=== PATIENT | male | born 1960 | race African-American/Black ===

== ENCOUNTER 2017-06-03 18:08 | Inpatient (IN) | payer MEDICAID, OTHER ==
[~2017-06-03] VITALS: Ht 198.1 cm; Wt 67.1 kg
[~2017-06-03 18:08] MED LIST: CEPH500C2 PO; CIPR-263; IOHEXOL-350 100 ML BOTTLE ONE; OXYB5TAB11; SODIUM CHLORIDE 0.9% 10ML VIAL ONE
[2017-06-03] MEDS ORDERED: LIDOCAINE HCL 1%/EPI 1:200,000 30 ML VIAL MC ONE (19:30)
[2017-06-03] MEDS ORDERED: LIDOCAINE/EPINEPHR/TETRACAINE 3ML TP ONE (19:30)
[2017-06-03] MEDS ORDERED: SODIUM CHLORIDE 0.9% 1,000 ML IV ONE (19:52)
[2017-06-03] MEDS ORDERED: ACETAMINOPHEN 325MG TABLET PO STA (19:52)
[2017-06-03 20:42] LABS: D-DIMER 0.83 mg/L FEU (<0.50); INR 1.1
[2017-06-03 20:44] LABS: HEMATOCRIT. 31.8 % (42.0-52.0); HEMOGLOBIN. 11.1 g/dL (14.0-18.0); MEAN CORPUSCULAR HEMOGLOBIN 34.3 pg (28.0-32.0); MEAN CORPUSCULAR VOLUME 98.6 fL (80.0-94.0); MEAN PLATELET VOLUME 7.7 fl (7.4-10.4); PLATELET 198 x1000/uL (130-400); RED BLOOD CELL COUNT 3.22 mill/uL (4.7-6.1); RED CELL DISTRIBUTION WIDTH 14.1 % (11.6-14.6)
[2017-06-03 20:48] LABS: CARBON DIOXIDE 24 mEq/L (21-32); CHLORIDE 88 mEq/L (98-107); TROPONIN I < 0.02 ng/mL (0.00-0.04)
[2017-06-03] MEDS ORDERED: POTASSIUM CHLORIDE 20MEQ TABLET SR PO NR (21:30)
[2017-06-03] MEDS ORDERED: FUROSEMIDE 40MG/4ML VIAL IVP NR (21:30)
[2017-06-03] MEDS ORDERED: ACETAMINOPHEN 325MG TABLET PO PRN (22:30)
[2017-06-03] MEDS ORDERED: DIPHENHYDRAMINE 50MG/ML VIAL IV PRN (22:30)
[2017-06-03] MEDS ORDERED: POTASSIUM CHLORIDE 20MEQ TABLET SR PO SCH (22:30)
[2017-06-03] MEDS ORDERED: MAGNESIUM/ALUMINUM HYDROXIDE/SIMETHICONE 30ML UDC PO PRN (22:30)
[2017-06-03] MEDS ORDERED: GUAIFENESIN 200MG/10ML SUGAR FREE UDC PO PRN (22:30)
[2017-06-03] MEDS ORDERED: ONDANSETRON HCL 4MG/2ML VIAL IV PRN (22:30)
[2017-06-03] MEDS ORDERED: IPRATROPIUM/ALBUTEROL 0.5-3(2.5)MG/3ML NEB INH PRN (22:30)
[2017-06-03] MEDS ORDERED: CLONIDINE 0.1MG TABLET PO PRN (22:30)
[2017-06-03] MEDS ORDERED: MAGNESIUM HYDROXIDE 400MG/5ML 30ML UDC PO PRN (22:30)
[2017-06-03 23:03] LABS: PLATELET ESTIMATE NORMAL
[2017-06-03] MEDS ORDERED: ZOLPIDEM TARTRATE 5MG TABLET PO PRN (23:30)
[2017-06-04 01:08] LABS: CLARITY URINE CLOUDY (CLEAR); COLOR URINE YELLOW (YELLOW); GLUCOSE URINE NEGATIVE (NEGATIVE); KETONES URINE 1+ (NEGATIVE); LEUKOCYTE ESTERASE URINE 3+ (NEGATIVE); NITRITE URINE POSITIVE (NEGATIVE); OCCULT BLOOD URINE TRACE (NEGATIVE); PH URINE 5.5 (4.5-8.0); PROTEIN URINE NEGATIVE (NEGATIVE)
[2017-06-04] MEDS ORDERED: LEVOFLOXACIN 500MG PREMIX 100 ML IV SCH (02:30)
[2017-06-04 08:00] VITALS: BP 93/57
[2017-06-04] MEDS ORDERED: THIAMINE HCL 100 MG in SODIUM CHLORIDE 0.9% 49 ML IV SCH (08:00)
[2017-06-04] MEDS ORDERED: MAGNESIUM 2 G PREMIX 50 ML IV SCH (08:00)
[2017-06-04 10:12] LABS: CARBON DIOXIDE 28 mEq/L (21-32); CHLORIDE 90 mEq/L (98-107)
[2017-06-04] MEDS: SODIUM CHLORIDE 0.9% INJ 3ML FLUSH IVF SCH ×3 (10:39→21:52)
[2017-06-04 12:27] VITALS: BP 109/64
[2017-06-04 13:32] VITALS: BP 93/57
[2017-06-04] MEDS: POTASSIUM CHLORIDE 20MEQ TABLET SR PO SCH ×3 (13:52→21:52)
[2017-06-04 15:13] VITALS: BP_SYST 129; BP_SYST 76; BP_SYST 92; BP_SYST 97; BP_DIAS 43; BP_DIAS 51; BP_DIAS 62; BP_DIAS 67
[2017-06-04] MEDS: LEVOFLOXACIN 500MG PREMIX 100 ML IV SCH (15:22)
[2017-06-04 20:00] VITALS: BP 109/58
[2017-06-04] MEDS ORDERED: MAGNESIUM 4 G PREMIX 100 ML IV NR (20:00)
[2017-06-05 00:33] VITALS: BP 105/59
[2017-06-05 04:00] VITALS: BP 101/52
[2017-06-05 07:28] LABS: CARBON DIOXIDE 33 mEq/L (21-32); CHLORIDE 92 mEq/L (98-107); PHOSPHORUS 1.6 mg/dL (2.5-4.9)
[2017-06-05 08:00] VITALS: BP 99/59
[2017-06-05] MEDS: POTASSIUM CHLORIDE 20MEQ TABLET SR PO SCH (09:48)
[2017-06-05] MEDS: THIAMINE HCL 100MG TABLET PO SCH (09:49)
[2017-06-05] MEDS: LEVOFLOXACIN 500MG PREMIX 100 ML IV SCH (09:50)
[2017-06-05 12:00] VITALS: BP 97/53
[2017-06-05] MEDS: SODIUM CHLORIDE 0.9% INJ 3ML FLUSH IVF SCH ×3 (14:00→22:59)
[2017-06-05] MEDS ORDERED: POTASSIUM PHOS,M-BASIC-D-BASIC 20 MMOL in DEXT 5% WATER 243.3333 ML IV SCH (15:00)
[2017-06-05 16:00] VITALS: BP 95/58
[2017-06-05 20:00] VITALS: BP 96/55
[2017-06-06] VITALS (7 sets, daily range): BP systolic 95–112; BP diastolic 54–68
[2017-06-06] MEDS: SODIUM CHLORIDE 0.9% INJ 3ML FLUSH IVF SCH ×3 (05:52→22:00)
[2017-06-06 06:33] LABS: HEMATOCRIT. 29.2 % (42.0-52.0); MEAN CORPUSCULAR HEMOGLOBIN 33.6 pg (28.0-32.0); MEAN CORPUSCULAR VOLUME 97.9 fL (80.0-94.0); MEAN PLATELET VOLUME 7.5 fl (7.4-10.4); PLATELET 298 x1000/uL (130-400); RED BLOOD CELL COUNT 2.99 mill/uL (4.7-6.1); RED CELL DISTRIBUTION WIDTH 14.3 % (11.6-14.6)
[2017-06-06 07:59] LABS: CARBON DIOXIDE 29 mEq/L (21-32); CHLORIDE 98 mEq/L (98-107); PHOSPHORUS 3.2 mg/dL (2.5-4.9)
[2017-06-06] MEDS: THIAMINE HCL 100MG TABLET PO SCH (09:24)
[2017-06-06] MEDS: POTASSIUM CHLORIDE 20MEQ TABLET SR PO SCH (09:24)
[2017-06-06] MEDS: LEVOFLOXACIN 500MG PREMIX 100 ML IV SCH (09:24)
[2017-06-06 14:13] LABS: PLATELET ESTIMATE NORMAL
[2017-06-06] MEDS ORDERED: MAGNESIUM 2 G PREMIX 50 ML IV NR (16:00)
[2017-06-07] VITALS (7 sets, daily range): BP systolic 95–115; BP diastolic 57–71
[2017-06-07] MEDS: SODIUM CHLORIDE 0.9% INJ 3ML FLUSH IVF SCH ×2 (06:00→16:49)
[2017-06-07] MEDS: POTASSIUM CHLORIDE 20MEQ TABLET SR PO SCH (08:53)
[2017-06-07] MEDS: THIAMINE HCL 100MG TABLET PO SCH (08:53)
[2017-06-07] MEDS: LEVOFLOXACIN 500MG PREMIX 100 ML IV SCH (08:59)
== END 2017-06-07 21:30 | disposition home health service (06) | DRG 52 ==
LOC: ER 18:45 → 6WST 21:43 → EDBEDREQ 21:52 → ENRESERV 06-04 04:30
PROVIDERS: ADMIT Internal Medicine; ATTEND Internal Medicine
DX: G93.41 Metabolic encephalopathy (principal); E43 Unspecified severe protein-calorie malnutrition; F10.20 Alcohol dependence, uncomplicated; E87.5 Hyperkalemia; L89.90 Pressure ulcer of unspecified site, unspecified stage; E87.1 Hypo-osmolality and hyponatremia; N39.0 Urinary tract infection, site not specified; J44.9 Chronic obstructive pulmonary disease, unspecified; Y90.9 Presence of alcohol in blood, level not specified; K76.9 Liver disease, unspecified; M25.572 Pain in left ankle and joints of left foot; Z79.2 Long term (current) use of antibiotics; Z72.0 Tobacco use; Z79.899 Other long term (current) drug therapy
CPT/HCPCS: 36415; 70450; 71010; 71275; 80048; 80053; 81001; 83735; 83880; 84100; 84443; 84484; 85025; 85379; 85610; 87077; 87086; 87186; 93005; 93970; 96374; 97110; 97163; 97530; 99285; A4216; J1940; J1956; J3411; J3475; J3490; J7030; J7050; J7060; Q9967

== ENCOUNTER 2017-06-09 13:46 | Emergency (ER) | payer MEDICAID ==
[~2017-06-09] VITALS: Ht 182.9 cm; Wt 68.0 kg
[~2017-06-09 13:46] MED LIST changes: -CEPH500C2 PO; -CIPR-263; -IOHEXOL-350 100 ML BOTTLE ONE; -SODIUM CHLORIDE 0.9% 10ML VIAL ONE
[2017-06-09 14:48] LABS: BASOPHILS % 1.3 % (0.0-2.0); EOSINOPHILS % 1.1 % (0.0-5.0); HEMATOCRIT. 30.1 % (42.0-52.0); HEMOGLOBIN. 10.4 g/dL (14.0-18.0); LYMPHOCYTES % 19.4 % (20.0-50.0); MEAN CORPUSCULAR HEMOGLOBIN 33.6 pg (28.0-32.0); MEAN CORPUSCULAR VOLUME 97.2 fL (80.0-94.0); MEAN PLATELET VOLUME 6.9 fl (7.4-10.4); MONOCYTES % 13.2 % (2.0-8.0); PLATELET 356 x1000/uL (130-400); RED BLOOD CELL COUNT 3.09 mill/uL (4.7-6.1); RED CELL DISTRIBUTION WIDTH 14.5 % (11.6-14.6)
[2017-06-09 14:56] LABS: PROTHROMBIN TIME 10.8 sec (9.4-11.6)
[2017-06-09 15:06] LABS: CARBON DIOXIDE 28 mEq/L (21-32); CHLORIDE 98 mEq/L (98-107)
[2017-06-09 16:02] LABS: CLARITY URINE CLEAR (CLEAR); COLOR URINE YELLOW (YELLOW); GLUCOSE URINE NEGATIVE (NEGATIVE); KETONES URINE NEGATIVE (NEGATIVE); LEUKOCYTE ESTERASE URINE NEGATIVE (NEGATIVE); NITRITE URINE NEGATIVE (NEGATIVE); OCCULT BLOOD URINE NEGATIVE (NEGATIVE); PH URINE 5.5 (4.5-8.0); PROTEIN URINE NEGATIVE (NEGATIVE); SPECIFIC GRAVITY URINE 1.011 (1.005-1.030)
[2017-06-09 18:55] VITALS: BP 111/73
== END 2017-06-09 19:05 | disposition home or self-care (01) ==
LOC: ER 18:17 → CANBEDREQ 19:28
DX: I95.9 Hypotension, unspecified (principal); R42 Dizziness and giddiness; I10 Essential (primary) hypertension; L97.529 Non-pressure chronic ulcer of other part of left foot with unspecified severity; E11.621 Type 2 diabetes mellitus with foot ulcer
CPT/HCPCS: 36415; 71010; 80053; 81003; 83605; 85025; 85610; 87040; 87086; 93005; 99285; Z7610

== ENCOUNTER 2021-02-02 11:20 | Inpatient (IN) | payer MEDICAID, OTHER ==
[~2021-02-02] VITALS: Ht 195.6 cm; Wt 86.4 kg
[~2021-02-02 11:20] MED LIST changes: -OXYB5TAB11; +OXYB5TAB17
[2021-02-02 12:11] LABS: BASOPHILS % 1.1 % (0.0-2.0); EOSINOPHILS % 1.9 % (0.0-5.0); HEMATOCRIT. 34.3 % (42.0-52.0); HEMOGLOBIN. 11.5 g/dL (14.0-18.0); LYMPHOCYTES % 28.2 % (20.0-50.0); MEAN CORPUSCULAR HEMOGLOBIN 29.6 pg (28.0-32.0); MEAN CORPUSCULAR VOLUME 88.3 fL (80.0-94.0); MEAN PLATELET VOLUME 7.4 fl (7.4-10.4); MONOCYTES % 13.5 % (2.0-8.0); NEUTROPHILS % 55.3 % (40.0-76.0); PLATELET 242 x1000/uL (130-400); RED BLOOD CELL COUNT 3.88 mill/uL (4.7-6.1); RED CELL DISTRIBUTION WIDTH 16.5 % (11.6-14.6)
[2021-02-02 12:19] LABS: CHLORIDE 104 mEq/L (98-107)
[2021-02-02 12:21] LABS: INR 1.1; PROTHROMBIN TIME 11.4 sec (9.6-11.0)
[2021-02-02 12:23] LABS: ETHANOL BLOOD < 10 mg/dL
[2021-02-02 12:27] LABS: C REACTIVE PROTEIN QUANT 4.7 mg/L (0.0-3.0); CREATINE KINASE 128 IU/L (39-308)
[2021-02-02 12:35] LABS: CLARITY URINE CLEAR (CLEAR); COLOR URINE YELLOW (YELLOW); KETONES URINE NEGATIVE (NEGATIVE); LEUKOCYTE ESTERASE URINE NEGATIVE (NEGATIVE); NITRITE URINE NEGATIVE (NEGATIVE); OCCULT BLOOD URINE NEGATIVE (NEGATIVE); PROTEIN URINE NEGATIVE (NEGATIVE); SPECIFIC GRAVITY URINE 1.013 (1.005-1.030); UROBILINOGEN URINE 0.2 E.U./dL (0.2-1.0)
[2021-02-02 12:48] LABS: *BARBITURATES SCREEN URINE NEGATIVE (NEGATIVE); *BENZODIAZEPINES SCREEN URINE NEGATIVE (NEGATIVE); *COCAINE SCREEN URINE NEGATIVE (NEGATIVE)
[2021-02-02 12:49] LABS: *AMPHETAMINES SCREEN URINE NEGATIVE (NEGATIVE); CANNABINOID URINE SCREEN NEGATIVE (NEGATIVE); METHADONE URINE SCREEN NEGATIVE (NEGATIVE); OPIATES URINE SCREEN NEGATIVE (NEGATIVE); PHENCYCLIDINE URINE SCREEN NEGATIVE (NEGATIVE)
[2021-02-02] MEDS ORDERED: PIPERACILLIN/TAZOBACTAM 3.375GM/50ML PREMIX IV ONE (13:00)
[2021-02-02] MEDS ORDERED: PIPERACILLIN/TAZ 3.375G PREMIX 50 ML IV SCH ×2 (13:00→23:00)
[2021-02-02] MEDS ORDERED: VANCOMYCIN 1 G PREMIX 200 ML IV SCH (13:00)
[2021-02-02 22:35] VITALS: BP 121/72
[2021-02-02] MEDS ORDERED: ONDANSETRON HCL 4MG/2ML INJ IV PRN (23:00)
[2021-02-02] MEDS ORDERED: NA PHOS,M-B/NA PHOS,DI-BA ENEMA 118ML PR PRN (23:00)
[2021-02-02] MEDS ORDERED: MORPHINE SULFATE 2 MG/ML CPJ (NOT FOR IM USE) IV PRN (23:00)
[2021-02-02] MEDS ORDERED: DIPHENHYDRAMINE 50MG/ML VIAL IV PRN (23:00)
[2021-02-02] MEDS ORDERED: GUAIFENESIN 200MG/10ML SUGAR FREE UDC PO PRN (23:00)
[2021-02-02] MEDS ORDERED: IPRATROPIUM/ALBUTEROL 0.5-3(2.5)MG/3ML NEB NEB PRN (23:00)
[2021-02-02] MEDS ORDERED: ACETAMINOPHEN 325MG TABLET PO PRN (23:00)
[2021-02-02] MEDS ORDERED: DOCUSATE SODIUM 100MG CAPSULE PO PRN (23:00)
[2021-02-02] MEDS ORDERED: MAGNESIUM/ALUMINUM HYDROXIDE/SIMETHICONE 30ML UDC PO PRN (23:00)
[2021-02-02] MEDS ORDERED: HYDROCODONE/ACETAMINOPHEN 5/325MG TABLET PO PRN (23:00)
[2021-02-02] MEDS ORDERED: LORAZEPAM 2MG/ML CPJ IV PRN (23:00)
[2021-02-02] MEDS ORDERED: CLONIDINE 0.1MG TABLET PO PRN (23:00)
[2021-02-02] MEDS ORDERED: DEXTROSE 50% WATER 50ML SYRINGE IV PRN (23:30)
[2021-02-03] VITALS: BP 115/68
[2021-02-03 00:02] LABS: CHLORIDE 105 mEq/L (98-107)
[2021-02-03] MEDS ORDERED: FURO-152 PO (01:10)
[2021-02-03] MEDS ORDERED: ACET-2708 MT (01:10)
[2021-02-03] MEDS: PIPERACILLIN/TAZOBACTAM 3.375 G in DEXT 5% WATER 100 ML IV SCH ×3 (01:49→18:05)
[2021-02-03] MEDS: VANCOMYCIN 1 G PREMIX 200 ML IV SCH ×3 (03:24→21:15)
[2021-02-03 04:46] VITALS: BP 99/57
[2021-02-03 06:25] LABS: CHLORIDE 106 mEq/L (98-107)
[2021-02-03 06:34] LABS: HDL CHOLESTEROL 39 mg/dL (40-59)
[2021-02-03 06:35] LABS: T4 FREE 1.06 ng/dL (0.76-1.46)
[2021-02-03] MEDS: BLOOD SUGAR DIAGNOSTIC STRIP TEST SCH ×4 (06:37→21:10)
[2021-02-03 06:46] LABS: LDL CHOLESTEROL 62 mg/dL (5-100)
[2021-02-03 07:25] LABS: BASOPHILS % 1.1 % (0.0-2.0); HEMATOCRIT. 36.4 % (42.0-52.0); HEMOGLOBIN. 12.2 g/dL (14.0-18.0); LYMPHOCYTES % 26.4 % (20.0-50.0); MEAN CORPUSCULAR HEMOGLOBIN 29.6 pg (28.0-32.0); MEAN CORPUSCULAR VOLUME 88.3 fL (80.0-94.0); MEAN PLATELET VOLUME 7.9 fl (7.4-10.4); MONOCYTES % 10.2 % (2.0-8.0); NEUTROPHILS % 59.3 % (40.0-76.0); PLATELET 244 x1000/uL (130-400); RED BLOOD CELL COUNT 4.12 mill/uL (4.7-6.1); RED CELL DISTRIBUTION WIDTH 16.5 % (11.6-14.6)
[2021-02-03] MEDS: INSULIN LISPRO 100 UNITS/ML SUBCUT SCH ×4 (07:50→21:00)
[2021-02-03 07:53] VITALS: BP 105/60
[2021-02-03] MEDS: FUROSEMIDE 40MG/4ML VIAL IV SCH (09:22)
[2021-02-03] MEDS: ENOXAPARIN 40MG/0.4ML SYR SUBCUT SCH (09:23)
[2021-02-03] MEDS: ASPIRIN 81MG EC TABLET PO SCH (09:23)
[2021-02-03 11:39] VITALS: BP 92/53
[2021-02-03 16:47] VITALS: BP 101/57
[2021-02-03 20:26] VITALS: BP 91/52
[2021-02-04 00:29] VITALS: BP 106/63
[2021-02-04] MEDS: PIPERACILLIN/TAZOBACTAM 3.375 G in DEXT 5% WATER 100 ML IV SCH ×2 (02:56→09:34)
[2021-02-04 04:00] VITALS: BP 99/58
[2021-02-04] MEDS: VANCOMYCIN 1 G PREMIX 200 ML IV SCH (06:18)
[2021-02-04] MEDS: BLOOD SUGAR DIAGNOSTIC STRIP TEST SCH ×2 (06:33→12:20)
[2021-02-04 06:36] LABS: CHLORIDE 103 mEq/L (98-107)
[2021-02-04 06:39] LABS: BASOPHILS % 0.8 % (0.0-2.0); EOSINOPHILS % 3.3 % (0.0-5.0); HEMATOCRIT. 36.8 % (42.0-52.0); HEMOGLOBIN. 12.1 g/dL (14.0-18.0); LYMPHOCYTES % 27.9 % (20.0-50.0); MEAN CORPUSCULAR HEMOGLOBIN 29.5 pg (28.0-32.0); MEAN CORPUSCULAR VOLUME 89.4 fL (80.0-94.0); MEAN PLATELET VOLUME 7.6 fl (7.4-10.4); MONOCYTES % 12.8 % (2.0-8.0); NEUTROPHILS % 55.2 % (40.0-76.0); PLATELET 253 x1000/uL (130-400); RED BLOOD CELL COUNT 4.12 mill/uL (4.7-6.1); RED CELL DISTRIBUTION WIDTH 16.5 % (11.6-14.6)
[2021-02-04] MEDS: INSULIN LISPRO 100 UNITS/ML SUBCUT SCH ×2 (07:50→12:50)
[2021-02-04 08:14] VITALS: BP 106/61
[2021-02-04] MEDS: FUROSEMIDE 40MG/4ML VIAL IV SCH (09:35)
[2021-02-04] MEDS: ASPIRIN 81MG EC TABLET PO SCH (09:35)
[2021-02-04] MEDS: ENOXAPARIN 40MG/0.4ML SYR SUBCUT SCH (09:36)
[2021-02-04 11:32] VITALS: BP 103/53
[2021-02-04] MEDS ORDERED: POTASSIUM CHLORIDE 20MEQ TABLET SR PO NR (12:15)
[2021-02-04 14:35] VITALS: BP 103/53
[2021-02-04] MEDS ORDERED: VANCOMYCIN 1 G PREMIX 200 ML IV SCH (18:00)
== END 2021-02-04 16:30 | disposition home health service (06) | DRG 383 ==
LOC: ER 11:20 → 6WST 13:46 → EDBEDREQTM 19:23 → EDBEDREQ 19:23 → EDBEDREQSVC 19:23 → ENRESERV 22:07
PROVIDERS: ADMIT Internal Medicine; ATTEND Internal Medicine
DX: L03.116 Cellulitis of left lower limb (principal); E11.628 Type 2 diabetes mellitus with other skin complications; I11.0 Hypertensive heart disease with heart failure; R65.10 Systemic inflammatory response syndrome (SIRS) of non-infectious origin without acute organ dysfunction; I50.9 Heart failure, unspecified; I87.2 Venous insufficiency (chronic) (peripheral); R26.9 Unspecified abnormalities of gait and mobility; L03.115 Cellulitis of right lower limb; F17.200 Nicotine dependence, unspecified, uncomplicated; J44.9 Chronic obstructive pulmonary disease, unspecified; S91.301A Unspecified open wound, right foot, initial encounter; X58.XXXA Exposure to other specified factors, initial encounter; Y93.89 Activity, other specified; Y92.89 Other specified places as the place of occurrence of the external cause; Y99.8 Other external cause status; Z82.49 Family history of ischemic heart disease and other diseases of the circulatory system; Z83.3 Family history of diabetes mellitus; Z79.899 Other long term (current) drug therapy
CPT/HCPCS: 36415; 71045; 73610; 73630; 80048; 80053; 80061; 80202; 80305; 80320; 81003; 82550; 82962; 83036; 83605; 83615; 83880; 84145; 84439; 84443; 84484; 85025; 85384; 86140; 93005; 93970; 97162; 99285; J1650; J1940; J2543; J3370; J7040; J7060; G0480

== ENCOUNTER 2021-04-29 15:33 | Emergency (ER) | payer OTHER ==
[~2021-04-29] VITALS: Ht 198.1 cm; Wt 82.0 kg
[~2021-04-29 15:33] MED LIST changes: +ACET-2708 MT; +FURO-152 PO; -OXYB5TAB17
[2021-04-30 06:46] VITALS: BP 133/79
== END 2021-04-30 06:50 | disposition home or self-care (01) ==
LOC: ER 15:33
DX: M79.671 Pain in right foot (principal); M79.672 Pain in left foot; E11.9 Type 2 diabetes mellitus without complications; I10 Essential (primary) hypertension; F17.210 Nicotine dependence, cigarettes, uncomplicated; H40.9 Unspecified glaucoma; L97.418 Non-pressure chronic ulcer of right heel and midfoot with other specified severity; H54.62 Unqualified visual loss, left eye, normal vision right eye; W01.0XXA Fall on same level from slipping, tripping and stumbling without subsequent striking against object, initial encounter; Y93.89 Activity, other specified; Y92.018 Other place in single-family (private) house as the place of occurrence of the external cause
CPT/HCPCS: 99285